=== PATIENT | female | born 1950 | race Two or more races ===

== ENCOUNTER 2018-06-28 06:04 | Day surgery (SDC) | payer BC ==
[~2018-06-28] VITALS: Ht 162.6 cm; Wt 98.2 kg
--- NOTE | 2018-06-28 06:35 | NUR ---
RN NOTES ADMITTED A 68 YEARS OLD, FEMALE PT SCHEDULED FOR DAY SURGERY TODAY. PT IS ALERT AND ORIENTED X4, VITAL SIGNS STABLE. DENIES PAIN AND DISCOMFORT AT THIS TIME. ON ROOM AIR WITH GOOD SATURATION. CONSENT FOR THE SURGERY, ANESTHESIA AND BLOOD TRANSFUSION SIGNED BY THE PT. ENDORSED TO THE MORNING RN TO CONTINUE WITH THE ADMISSION.
--- NOTE | 2018-06-28 07:00 | NUR ---
RN OPENING NOTES RECEIVED PT. IN BED A&OX4. PT.'S FRIEND DHARMESH IS AT BEDSIDE. BREATHING IS UNLABORED ON ROOM AIR. IV ACCESS IS ON THE RIGHT FOREARM GAUGE 18 S/L. BED IS IN LOWEST, AND LOCKED POSITION. 2 SIDE RAILS UP, AND INSTRUCTED PT. TO USE CALL LIGHT FOR ASSISTANCE. ALL NEEDS MET, WILL CONTINUE TO ASSESS AND MONITOR.
--- NOTE | 2018-06-28 07:30 | NUR ---
RN NOTES INSERTED PERIPHERAL LINE GAUGE18 ON RIGHT FOREARM WITH GOOD BLOOD RETURN. PT TOLERATED PROCEDURE WELL.
[2018-06-28 08:41] VITALS: BP 131/79
[2018-06-28 08:50] VITALS: BP 131/79
[2018-06-28] MEDS ORDERED: POTA5TAB2 PO (09:07)
[2018-06-28] MEDS ORDERED: BACL10TA PO (09:07)
[2018-06-28] MEDS ORDERED: RIVA10TA PO (09:07)
[2018-06-28] MEDS ORDERED: OLME20TA23 PO (09:07)
[2018-06-28] MEDS ORDERED: MONT10TA22 PO (09:07)
[2018-06-28] MEDS ORDERED: BUPR300T54 PO (09:07)
[2018-06-28] MEDS ORDERED: ESOM40CA52 PO (09:07)
[2018-06-28] MEDS ORDERED: ACET-2605 PO (09:19)
[2018-06-28] MEDS ORDERED: FLUT16SP16 BNOSTRILS (09:19)
--- NOTE | 2018-06-28 09:45 | NUR ---
RN LEFT ROOM 326 BED 2 FOR SURGERY. PT. LEFT WITH OR NURSE.
[2018-06-28] MEDS ORDERED: methylPREDNISolone ACETATE 40 MG/ML VIAL ONE (10:30)
[2018-06-28] MEDS ORDERED: LIDOCAINE 1% INJ 50 ML MDV IJ ONE (10:30)
[2018-06-28] MEDS ORDERED: FENTANYL PF 100MCG/2ML AMPUL ONE (11:05)
[2018-06-28] MEDS ORDERED: HYDROCODONE/APAP 5/325MG 1 EACH TABLET PO PRN ×2 (11:30)
== END 2018-06-28 13:35 | disposition home or self-care (01) ==
LOC: DS 06:04 → MED 06:06 → UNDOADMIN 06:06 → EDSTATUS 12:30 → DS 13:35
PROVIDERS: ATTEND Specialist
DX: M23.321 Other meniscus derangements, posterior horn of medial meniscus, right knee (principal); M23.351 Other meniscus derangements, posterior horn of lateral meniscus, right knee; M94.261 Chondromalacia, right knee; J45.909 Unspecified asthma, uncomplicated; I12.9 Hypertensive chronic kidney disease with stage 1 through stage 4 chronic kidney disease, or unspecified chronic kidney disease; N18.9 Chronic kidney disease, unspecified; Z79.899 Other long term (current) drug therapy; Z98.890 Other specified postprocedural states
CPT/HCPCS: 29880; 88304; 88311; J0690; J1030; J1100; J1885; J2704; J3010; J3490 ×2; A4217; A4606; A6253; Z7610